=== PATIENT | female | born 1990 | race Caucasian/White ===

== ENCOUNTER 2019-08-27 19:32 | Emergency (ER) | payer BC ==
[~2019-08-27] VITALS: Ht 157.5 cm; Wt 59.1 kg
[2019-08-27 19:38] VITALS: Ht 157.5 cm; Wt 59.1 kg
[2019-08-27 20:57] LABS: BASOPHILS 0.2 % (0-2); EOSINOPHILS 0.8 % (0-7); HEMATOCRIT 41.5 % (36.0-48.0); HEMOGLOBIN 13.9 g/dL (12-16); IMMATURE GRANULOCYTES 0.3 % (0-5); LYMPHOCYTES 12.9 % (15-50); MCH 30.2 pg (26.0-34.0); MCHC 33.5 g/dL (31.0-37.0); MEAN PLATELET VOLUME 10.4 fL (7.4-10.4); MONOCYTES 6.3 % (2-11); NEUTROPHILS 79.5 % (40-80); PLATELET COUNT 287 10x3/uL (130-400); RBC 4.61 10x6/uL (4.00-5.40); RDW 12.2 % (11.5-14.5); WBC 15.3 10x3/uL (4.8-10.8)
[2019-08-27 21:07] LABS: CALC OSMOLALITY 280 mosm/kg (275-300); CALCIUM 8.9 mg/dL (8.5-10.1); CARBON DIOXIDE 25.6 mmol/L (21.0-32.0); CHLORIDE - SERUM 103 mmol/L (98-107); CREATININE - SERUM 0.8 mg/dL (0.6-1.3); GLUCOSE 107 mg/dL (74-106); POTASSIUM - SERUM 3.5 mmol/L (3.5-5.1); SODIUM 140 mmol/L (136-145); UREA NITROGEN 19 mg/dL (7-18); eGFR NON AFRICAN AMERICAN 89 mL/min (90-120)
[2019-08-27 21:08] LABS: APTT 24.7 SECONDS (22.8-39.4); INR 0.96 (0.85-1.17); PROTIME 12.3 SECONDS (11.6-15.0)
[2019-08-27 21:09] LABS: APPEARANCE CLEAR (CLEAR); BILIRUBIN NEGATIVE (NEGATIVE); COLOR STRAW (YELLOW); GLUCOSE NEGATIVE (NEGATIVE); KETONE NEGATIVE (NEGATIVE); NITRITE NEGATIVE (NEGATIVE); PROTEIN NEGATIVE (NEGATIVE); SPECIFIC GRAVITY 1.015 (1.005-1.020); UROBILINOGEN NORMAL (NORMAL)
[2019-08-27 21:13] LABS: BACTERIA FEW /hpf (NEGATIVE); EPITHELIAL CELLS 0-5 /hpf (0-5); RED CELLS - URINE 0-5 /hpf (0-5); WHITE CELLS - URINE 0-5 /hpf (NEGATIVE)
[2019-08-27 21:13] LABS: ALBUMIN 4.2 g/dL (3.4-5.0); ALKALINE PHOSPHATASE 69 U/L (46-116); ALT (SGPT) 22 U/L (10-68); BILIRUBIN - TOTAL 0.25 mg/dL (0.2-1.3); PROTEIN - SERUM 7.6 g/dL (6.4-8.2)
[2019-08-27] MEDS ORDERED: CYCLOBENZAPRINE10 MG PO (21:32)
[2019-08-27] MEDS ORDERED: ACETAMINOPHEN500 M1 PO (21:32)
[2019-08-27] MEDS ORDERED: IBUPROFEN800 MG PO (21:32)
[2019-08-27 22:54] VITALS: BP 132/73
== END 2019-08-27 22:55 | disposition home or self-care (01) ==
LOC: D.ER 19:32
PROVIDERS: Family Medicine
DX: R10.9 Unspecified abdominal pain (principal); S70.212A Abrasion, left hip, initial encounter; S10.91XA Abrasion of unspecified part of neck, initial encounter; M25.532 Pain in left wrist; M79.18 Myalgia, other site; T14.8XXA Other injury of unspecified body region, initial encounter; V27.0XXA Motorcycle driver injured in collision with fixed or stationary object in nontraffic accident, initial encounter; W22.11XA Striking against or struck by driver side automobile airbag, initial encounter; Y93.9 Activity, unspecified; Y92.9 Unspecified place or not applicable